=== PATIENT | male | born 1945 | race Caucasian/White ===

== ENCOUNTER 2018-11-17 05:20 | Day surgery (SDC) | payer OTHER ==
[~2018-11-17] VITALS: Ht 180.3 cm; Wt 90.7 kg
[~2018-11-17 05:20] MED LIST: ARTIFICIAL TEA1 EACH OPHTHALMIC; ASPIR 8181 MG PO; CYCLOBENZAPRINE5 MG PO; ESCITALOPRAM OX20 MG PO; GABAPENTIN 100100 MG PO; NORVASC5 MG PO; OMEPRAZOLE 20 M20 M1 PO; PROAIR RESPICL90 MCG INH; SYMBICORT160 MCG/4. INH; VITAMIN B-12500 MCG PO; WELLBUTRIN XL300 MG PO
[2018-11-17 10:35] VITALS: BP 141/75
--- NOTE | 2018-11-21 06:18 | O ---
[facility] [place] [address] OPERATIVE REPORT Name: CARDOZOEDI Room #: DEP [facility].#: [id number] Admission: 11/17/18 ������������������ Attend Phys: Haroldo Anderson MD Discharge: 11/17/18 ������������������ Date of : 49 Report #: [id number] THIS REPORT FOR: //name// CC: SAMIRA SIMONS FAM unknown DEWEY ATKINS Haroldo Anderson DATE OF SERVICE: 11/17/2018 CREATIVE PRODUCER: None. PREOPERATIVE DIAGNOSIS: Unilateral right lower lid entropion. POSTOPERATIVE DIAGNOSIS: Unilateral right lower lid entropion. OPERATION PERFORMED: Unilateral right lower lid entropion repair. ANESTHESIA: Local with IV sedation. COMPLICATIONS: None. INDICATIONS FOR PROCEDURE: This patient has unilateral lower lid entropion with chronic irritation and discharge. The current procedure is being undertaken in order to improve the patient's level of comfort and visual function. Informed consent was obtained to include but not limited to the loss of vision, bleeding, infection, scarring, failure to improve the problem and need for further surgery. DESCRIPTION OF OPERATION: The patient was taken to the operating room, where 2% Xylocaine with epinephrine mixed with equal parts of 0.75% Marcaine with Wydase was administered transcutaneously and transconjunctivally to the lower lid and lateral canthal area. The patient was then prepped and draped in the usual sterile fashion. A David clamp was used to clamp the lateral canthus, following which a sharp canthotomy and cantholysis were performed. Hemostasis was achieved with a monopolar cautery, as it was throughout the case. A tarsal strip was prepared laterally, removing the lash-bearing portion of the redundant lid margin and the redundant tarsal plate. A transconjunctival dissection was then undertaken just inferior to the lower border of the tarsal plate. The lower lid retractors were disinserted from the inferior border of the tarsal plate. The lower lid retractors were then advanced and reattached to the anterior surface of the tarsal plate with mattress 5-0 chromic sutures passed transconjunctivally and secured in the infraciliary margin. The tarsal strip was then secured laterally with 2 interrupted 5-0 Prolene sutures. The subcutaneous structures and the skin were then closed with multiple interrupted [address] [address] OPERATIVE REPORT Name: CARDOZOEDI Room #: DEP [facility]#: [id number] Admission: 11/17/18 ������������������ Attend Phys: Haroldo Anderson MD Discharge: 11/17/18 ������������������ Date of : 49 Report #: [id number] 6-0 plain gut sutures so the lateral canthal angle was sharply reformed. The wound was then cleaned and dressed with ophthalmic antibiotic ointment. The patient was then transported to the recovery area having tolerated the procedure well with no anesthetic or operative complications being noted. ��������������������������������������������� <ELECTRONICALLY SIGNED> ���������������������������������������� By: Haroldo Anderson MD ��������������������������������������������� 11/21/18 0618 1203 1229 Haroldo Anderson MD /king
== END 2018-11-17 13:00 | disposition home or self-care (01) ==
LOC: OR 05:20 → TBA 05:20 → OR 10:10
DX: H02.002 Unspecified entropion of right lower eyelid (principal); F32.9 Major depressive disorder, single episode, unspecified; Z87.891 Personal history of nicotine dependence; J43.9 Emphysema, unspecified; Z98.890 Other specified postprocedural states; G47.30 Sleep apnea, unspecified; Z79.899 Other long term (current) drug therapy; G62.9 Polyneuropathy, unspecified; I10 Essential (primary) hypertension; K21.9 Gastro-esophageal reflux disease without esophagitis
CPT/HCPCS: 50010; 50101; 50386; 50398; 51636; 56527; 56531; 62110; 62850; 70005